=== PATIENT | female | born 1955 | race Caucasian/White ===

== ENCOUNTER → 2017-02-12 | Outpatient (CLI) | payer OTHER ==
--- NOTE | 2017-02-12 13:56 | DIAGNOSTIC IMAGING REPORT ---
SOFT TISS HEAD/NECK-THYROID CLINICAL HISTORY: 61 years-old Female presenting with NON TOXIC SINGLE THYROID NODULE. TECHNIQUE: Real-time grayscale and color Doppler ultrasound imaging of the thyroid was performed. COMPARISON: None. FINDINGS: Right lobe: Heterogeneous right lobe. Right lobe of the thyroid measures 2.7 x 1.9 x 1.6 cm. The right lobe has a multinodular appearance. Several nodules enumerated below: 1) peripherally calcified hypoechoic nodule measuring 0.8 x 0.7 x 0.6 cm. (Intermedia in suspicion) 2) spongiform fairly well-circumscribed nodule measuring 1.3 x 0.8 x 1.0 cm. (Sharron low suspicion) Left lobe: Enlarged by a spongiform dominant nodule. The left lobe measures 3.8 x 2.3 x 2.1 cm. 1) dominant nodule partially cystic and partially solid with a spongiform appearance measures 2.2 x 1.7 x 1.7 cm. Focus of coarse calcification noted along the periphery. (Very low suspicion) Isthmus: Thickened measuring 6 mm. 1) well-defined hypoechoic wider than tall nodule measuring 1.6 x 1.3 x 1.0 cm along the left aspect of the isthmus. (Intermediate in suspicion) 2) heterogeneously hyperechoic nodule with less well-defined margins measuring 1.1 x 0.7 x 1.3 cm. (Low suspicion) IMPRESSION: 1. Multinodular thyroid. 2.2 cm hypoechoic nodule in the left lobe of the thyroid is intermediate in suspicion for malignancy and due to size biopsy is recommended. Electronically signed by: Jimbo Parry M.D. 02/12/2017 1:54 PM Dictated Date/Time: 02/12/2017 1:43 PM
== END | disposition home or self-care (01) ==
LOC: C.ULTR 13:08
PROVIDERS: ATTEND Family Medicine
DX: E04.1 Nontoxic single thyroid nodule (principal)

== ENCOUNTER → 2017-03-10 | Outpatient (CLI) | payer OTHER ==
--- NOTE | 2017-03-11 14:36 | MAMMOGRAPHY REPORT ---
BILATERAL DIGITAL SCREENING MAMMOGRAM WITH CAD: 03/10/2017 CLINICAL HISTORY: Routine screening. TECHNIQUE: Bilateral CC and MLO views were obtained. Current study was also evaluated with a Compute r Aided Detection (CAD) system. COMPARISON: Comparison is made to exams dated: 10/27/2013 mammogram, 03/06/2016 mammogram - [facility], 08/14/2012 mammogram, 05/09/2011 mammogram, 04/03/2010 mammogram, and 03/31/2009 mammog esme - [facility]. BREAST COMPOSITION: The tissue of both breasts is almost entirely fatty. FINDINGS: A focal asymmetry in the upper outer middle one third of the right breast appears stable on all available prior mammograms dating back to at least 03/31/2009, therefore likely benign. No new suspicious mass, architectural distortion or cluster of microcalcifications is seen. IMPRESSION: ACR BI-RADS CATEGORY 1: NEGATIVE There is no mammographic evidence of malignancy. A 1 year screening mammogram is recommended. The pa tient will receive written notification of the results. Approximately 10% of breast cancers are not detected with mammography. A negative mammographic report should not delay biopsy if a clinically suggestive mass is present. Deisi Stanley M.D. ay/:03/10/2017 15:26:23 Sales Account Representative: Nisreen CALABRESE)(M), [facility] [address] letter sent: Normal 1/2 BI-RADS Code: ACR BI-RADS Category 1: Negative
== END | disposition home or self-care (01) ==
LOC: C.MAMM 14:53
PROVIDERS: ATTEND Family Medicine
DX: Z12.31 Encounter for screening mammogram for malignant neoplasm of breast (principal)

== ENCOUNTER → 2017-04-07 | Outpatient (CLI) | payer OTHER ==
--- NOTE | 2017-04-07 12:55 | DIAGNOSTIC IMAGING REPORT ---
LEFT HIP UNILATERAL 2 VIEWS CLINICAL HISTORY: 61 years-old Female presenting with PAIN IN LEFT HIP. TECHNIQUE: Frontal and frog-leg lateral views of the left hip were obtained. COMPARISON: None. FINDINGS: Hip joint congruent. No significant degenerative change. No acute fracture or malalignment. Remaining visualized portion of the pelvis demonstrates degenerative change of the pubic symphysis. Regional soft tissues normal. IMPRESSION: No acute osseous injury of the left hip. Electronically signed by: Jimbo Parry M.D. 04/07/2017 12:54 PM Dictated Date/Time: 04/07/2017 12:53 PM
== END | disposition home or self-care (01) ==
LOC: C.RAD1850 12:26
PROVIDERS: ATTEND Family Medicine
DX: M25.552 Pain in left hip (principal)